=== PATIENT | female | born 1985 ===

== ENCOUNTER 2018-05-16 17:07 | Emergency (ER) | payer OTHER, SELFPAY ==
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
[2018-05-16] MEDS ORDERED: IBUPROFEN 200 MG TAB PO ONE (19:18)
[2018-05-16] MEDS ORDERED: IBUPROFEN 400 MG TAB ONE (19:18)
[2018-05-16] MEDS ORDERED: HYDROCODONE/APAP 5/325 MG TAB ONE (19:18)
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
== END 2018-05-16 20:08 | disposition home or self-care (01) ==
LOC: ER 17:07
DX: S16.1XXA Strain of muscle, fascia and tendon at neck level, initial encounter (principal); S29.012A Strain of muscle and tendon of back wall of thorax, initial encounter; V43.52XA Car driver injured in collision with other type car in traffic accident, initial encounter; Z88.0 Allergy status to penicillin
CPT/HCPCS: 72125; 99285